=== PATIENT | female | born 1970 | race Caucasian/White ===

== ENCOUNTER 2017-10-26 05:20 | Day surgery (SDC) | payer OTHER ==
[~2017-10-26] VITALS: Ht 162.6 cm; Wt 61.7 kg
[~2017-10-26 05:20] MED LIST: ADVIL,NUPRIN,M200 MG PO; MULTIPLE VITAM1 EACH PO; SYNTHROID25 MCG PO
[2017-10-26 05:57] LABS: BASOPHIL (%) 0.6 % (0-1); EOSINOPHIL (%) 4.9 % (0-5); EOSINOPHIL COUNT 0.3 K/uL (0-0.3); HEMOGLOBIN 12.1 G/DL (11.9-15.5); IMMATURE GRANULOCYTE (%) 0.1 % (0.0-0.7); LYMPHOCYTE (%) 29.4 % (15-42); MCH 29.4 PG (29.0-34.0); MCHC 32.7 G/DL (30.0-36.0); MCV 89.8 FL (83-99); MONOCYTE COUNT 0.7 K/uL (0-0.8); NEUTROPHIL COUNT 3.7 K/uL (1.8-6.4); PLATELET COUNT 208 K/uL (156-360); RBC DIS.WIDTH-CV 12.9 % (11.8-14.6); RBC DIS.WIDTH-SD 42.4 % (39-53); RED BLOOD COUNT 4.12 M/uL (3.80-5.20); WHITE BLOOD COUNT 6.8 K/uL (4.1-10.2)
[2017-10-26 06:11] VITALS: BP 147/68
[2017-10-26] MEDS ORDERED: MOTRIN600 MG PO (08:30)
[2017-10-26 09:17] VITALS: BP 117/98
[2017-10-26 09:55] VITALS: BP 138/96
== END 2017-10-26 09:58 | disposition home or self-care (01) ==
LOC: SDC 05:20
PROVIDERS: Obstetrics & Gynecology
DX: N93.9 Abnormal uterine and vaginal bleeding, unspecified (principal); E78.5 Hyperlipidemia, unspecified; M19.90 Unspecified osteoarthritis, unspecified site; Z80.3 Family history of malignant neoplasm of breast; Z83.49 Family history of other endocrine, nutritional and metabolic diseases; N94.6 Dysmenorrhea, unspecified
CPT/HCPCS: 81025; 85025; 86850; 86900; 86901; 88305; J1100; J1885; J2250; J2405; J3010